=== PATIENT | female | born 1965 | race African-American/Black ===

== ENCOUNTER 2025-03-05 10:33 | Emergency (ER) | payer SELFPAY ==
[2025-03-05] MEDS ORDERED: Metoclopramide HCl 10 MG (2 mL) VIAL ONE (11:40)
[2025-03-05] MEDS ORDERED: Famotidine/PF 20 mg/2ml Vial ONE (11:40)
[2025-03-05] MEDS ORDERED: diphenhydrAMINE 50 MG/ML VIAL ONE (11:40)
[2025-03-05] MEDS ORDERED: Lidocaine Viscous Sol 2% 15 ml UD Cup ONE (11:40)
[2025-03-05] MEDS ORDERED: Mag-Al 1200 mg/1200 mg/30 ML UDCUP ONE (11:40)
[2025-03-05 12:10] LABS: #Basophils 0.03 10x3/uL (0.0-0.2); #Eosinophils 0.07 10x3/uL (0.0-0.7); #Monocytes 0.33 10x3/uL (0.11-0.59); #Neutrophils 7.52 10x3/uL (1.40-6.50); %Basophils 0.3 % (0.0-1.0); %Eosinophils 0.7 % (0.0-10.0); %Lymphocytes 16.7 % (21.0-51.0); %Monocytes 3.4 % (0.0-10.0); %Neutrophils 78.7 % (42.0-75.0); Hematocrit 43.3 % (36.0-47.0); Hemoglobin 14.1 g/dL (12.0-16.0); Mean Corpuscular Hemoglobin 30.5 pg (27.0-31.0); Mean Corpuscular Volume 93.7 fL (78.0-98.0); Platelet Count 272 10x3/uL (130-400); Red Blood Cell (RBC) Count 4.62 mill/uL (4.20-5.40); White Blood Cell (WBC) Count 9.57 10x3/uL (4.8-10.8)
[2025-03-05 12:43] LABS: ALT (SGPT) 13 U/L (Less than 34); AST (SGOT) 30 U/L (11-34); Albumin 3.9 g/dL (3.1-4.5); Alkaline Phosphatase 88 U/L (40-110); Anion Gap 16 mmol/L (10-20); BUN (Urea Nitrogen) 12 mg/dL (9.8-20.1); Bilirubin, Total 0.4 mg/dL (0.3-1.2); Calc. Creatinine Clearance 0 mL/min (70-130); Calcium 9.9 mg/dL (7.8-10.44); Carbon Dioxide 20 mmol/L (22-29); Chloride 103 mmol/L (98-107); Globulin 4.3 g/dL (2.4-3.5); Glucose 378 mg/dL (70-105); Lipase 7 U/L (8-78); Potassium 4.3 mmol/L (3.5-5.1); Sodium 135 mmol/L (136-145)
[2025-03-05 14:31] LABS: Bacteria/HPF None Seen HPF (None Seen); CAUTI Indications for Culture Pelvic or flank pain; Glucose, Urine (Dipstick) Greater than 1000 mg/dL (Negative); Leukocyte 250 Leu/uL (Negative); Protein, Urine (Dipstick) 50 mg/dL (Neg-Trace); RBC/HPF 0-3 HPF (0-3); Specific Gravity, Urine 1.036 (1.002-1.036)
[2025-03-05 14:32] LABS: Urine Culture Reflex Yes Yes
== END 2025-03-05 17:58 | disposition home or self-care (01) ==
LOC: ERS 10:33
DX: K80.20 Calculus of gallbladder without cholecystitis without obstruction (principal); N39.0 Urinary tract infection, site not specified; I10 Essential (primary) hypertension; E11.9 Type 2 diabetes mellitus without complications
CPT/HCPCS: 76705; 80053; 81001; 83690; 84484; 85025; 87077; 87086; 93005; 96365; 96366; 96375; J1200; J2765; Q0162